=== PATIENT | male | born 1970 | race Caucasian/White ===

== ENCOUNTER 2018-12-02 14:20 | Emergency (ER) | payer BC ==
--- NOTE | 2018-12-02 14:37 | ERPHSYRPT ---
- History of Present Illness Time Seen by Provider: 12/02/18 14:37 Source: patient Exam Limitations: no limitations Occurred: just prior to arrival Method of Injury: incised (accidental cut with knife) Quality: constant Severity of Pain-Max: moderate Severity of Pain-Current: moderate Extremities Pain Location: 2nd finger: left, 3rd finger: left Modifying Factors: Improves With: movement Associated Symptoms: none Allergies/Adverse Reactions: No Known Drug Allergies Allergy (Unverified 12/02/18 14:39) - Review of Systems Constitutional: No Fever, No Chills Eyes: No Symptoms Ears, Nose, & Throat: No Symptoms Respiratory: No Cough, No Dyspnea Cardiac: No Chest Pain, No Edema, No Syncope Abdominal/Gastrointestinal: No Symptoms, No Abdominal Pain, No Nausea, No Vomiting, No Diarrhea Genitourinary Symptoms: No Symptoms, No Dysuria Musculoskeletal: No Symptoms, No Back Pain, No Neck Pain Skin: No Symptoms, No Rash Neurological: No Symptoms, No Dizziness, No Focal Weakness, No Sensory Changes Psychological: No Symptoms Endocrine: No Symptoms Hematologic/Lymphatic: No Symptoms Immunological/Allergic: No Symptoms All Other Systems: Reviewed and Negative - Past Medical History Pertinent Past Medical History: Yes Neurological History: No Pertinent History ENT History: No Pertinent History Cardiac History: No Pertinent History Respiratory History: No Pertinent History Endocrine Medical History: No Pertinent History Musculoskeletal History: No Pertinent History, Arthritis GI Medical History: No Pertinent History History: No Pertinent History Psycho-Social History: No Pertinent History Male Reproductive Disorders: No Pertinent History - Nursing Vital Signs Nursing Vital Signs: Initial Vital Signs Temperature 97.8 F 12/02/18 14:26 Pulse Rate 77 12/02/18 14:26 Respiratory Rate 18 12/02/18 14:26 Blood Pressure 104/73 12/02/18 14:26 O2 Sat by Pulse Oximetry 99 12/02/18 14:26 Pain Scale Pain Intensity 5 - Physical Exam General Appearance: no apparent distress Eyes, Ears, Nose, Throat Exam: normal ENT inspection Neck Exam: normal inspection Cardiovascular/Respiratory Exam: chest non-tender, normal breath sounds Abdominal Exam: non-tender, soft Shoulder Exam: normal inspection Elbow/Forearm Exam: normal inspection Wrist Exam: normal inspection Hand Exam: laceration (left index finger and left middle finger, near PIPJ, not right on the joint), limited ROM (lacks full extension of the distal phalanx on the LIF), soft tissue tenderness Neuro/Tendon Exam: normal sensation, normal motor functions, responds to pain, tendon function deficit (lack of full extension of distal phalanx of the LIF, cannot exclude other tendon injuries) Mental Status Exam: alert, oriented x 3, cooperative Skin Exam: normal color, warm, dry Procedures - Laceration/Wound Repair Left Dorsal Finger Wound Location: Left Wound Length (cm): 2.5 Wound's Depth, Shape: superficial, linear Wound Explored: no foreign body noted Irrigated: Yes Hibiclens Prep: Yes Anesthesia: digital block, 1% Lidocaine Volume Anesthetic (ccs): 4 Wound Repaired With: sutures Suture Size/Type: 4-0, ethilon Number of Sutures: 7 Layer Closure?: No Sterile Dressing Applied?: Yes Splint Applied?: No Sling Applied?: No Left Finger Wound Location: Left Wound Length (cm): 1.5 Wound's Depth, Shape: superficial Wound Explored: clean Irrigated: Yes Hibiclens Prep: Yes Anesthesia: local, digital block, 1% Lidocaine Volume Anesthetic (ccs): 4 Wound Repaired With: sutures Suture Size/Type: 4-0, ethilon Number of Sutures: 5 Layer Closure?: No Sterile Dressing Applied?: Yes Splint Applied?: No Sling Applied?: No - Course Nursing assessment & vital signs reviewed: Yes Ordered Tests: Medication Summary Discontinued Medications Generic Name Dose Route Start Last Admin Trade Name Freq PRN Reason Stop Dose Admin Diphtheria/Tetanus/Acell Pertussis 0.5 ml 12/02/18 14:40 12/02/18 14:51 Adacel Vial IM 12/02/18 14:41 0.5 ml .ONCE ONE Administration Diphtheria/Tetanus/Acell Pertussis Confirm 12/02/18 14:47 Adacel Vial Administered 12/02/18 14:48 Dose 0.5 ml IM .STK-MED ONE Lidocaine HCl 5 ml 12/02/18 14:45 12/02/18 14:52 Xylocaine 1% Hcl 20 Ml Mdv IJ 12/02/18 14:46 5 ml STAT ONE Administration Lidocaine HCl Confirm 12/02/18 14:46 Xylocaine 1% Hcl 20 Ml Mdv Administered 12/02/18 14:47 Dose 5 ml .ROUTE .STK-MED ONE - Progress Progress: improved, re-examined Progress Note: 12/02/18 21:29 Repaired lac on dorsal LIF over middle phalanx. NVI. There a lag in extension at the DIPJ c/w tendon injury. I explained patient that he would need to see a hand surgeon for evaluation of this tendon injury, and possibly others. He refuses the referral. Repaired lac on LMF over prox. phalanx, no tendon injury noted, but cannot exclude that, needs to see a hand surgeon. Counseled pt/family regarding: diagnosis, need for follow-up (See hand surgeon YONAS - refused.) - Departure Departure Disposition: Home Clinical Impression: Hand laceration Qualifiers: Encounter type: initial encounter Foreign body presence: without foreign body Laterality: left Qualified Code(s): S61.412A - Laceration without foreign body of left hand, initial encounter Condition: Stable Critical Care Time: No Referrals: DOCTOR,NO FAMILY [Primary Care Provider] - Instructions: Laceration Repair With Stitches (DC) Additional Instructions: Wound care as advised. Stitches should come out in 10-14 days. There is a tendon laceration in the index finger. If you want this repaired, you need to see a hand surgeon this week. Resume activity as tolerated. Forms: Work/School Release Form Plan of Treatment: S/R in 10-14 d. He has an extensor tendon lac. in LIF, refuses referral to see a hand surgeon. Prescriptions: Hydrocodone/APAP 5-325 Tab^^^ [Dexter 5-325 Tablet^^^] 1 tab PO Q6HPRN PRN #4 tablet MDD 6 PRN Reason: Pain Cephalexin Mh 500 mg [Keflex 500 mg] 500 mg PO BID #10 capsule
[2018-12-02] MEDS ORDERED: Adacel Vial IM ONE ×2 (14:40→14:47)
[2018-12-02] MEDS ORDERED: XYLOCAINE 1% HCL 20 ML MDV IJ ONE (14:45)
[2018-12-02] MEDS ORDERED: XYLOCAINE 1% HCL 20 ML MDV ONE (14:46)
[2018-12-02 16:06] VITALS: BP 128/83; PULSE 70; O2SAT 98
== END 2018-12-02 16:20 | disposition home or self-care (01) ==
LOC: ED 14:20
DX: S61.412A Laceration without foreign body of left hand, initial encounter (principal); W26.0XXA Contact with knife, initial encounter
CPT/HCPCS: 12001; 90471; 90715; 96372; 99284